=== PATIENT | female | born 1985 | race Caucasian/White ===

== ENCOUNTER → 2017-02-28 | Outpatient (CLI) | payer BC ==
--- NOTE | ~2017-02-28 | NDGEN ---
PATIENT'S NAME: MARCIA GOYAL [facility] [place] AGE: 31 Y [address] ROOM: [place] [id number] LOCATION: [facility] ADMIT DATE: 02/28/2017 [facility] DISCHARGE DATE: FAMILY PHYSICIAN: PAULO UP NP ATTENDING PHYSICIAN: GURJIT GERMAN PROCEDURE: ELECTROENCEPHALOGRAM DATE OF PROCEDURE: 02/28/2017 CLINICAL DIAGNOSIS: TIME: 11:50 a.m. INDICATION: This is a 31-year-old female patient, who had a history of a syncopal event. The EEG was done to rule out any evidence of epileptiform activity or abnormal background rhythm. This 21-lead EEG revealed symmetric background rhythm consistent with an alpha range in between 10-12 hertz rhythm. The amplitudes were well within normal range of 30 to 50 microvolts with a normal sinusoidal pattern in the background at no time during the study was there any alteration in the background rhythm. There was no evidence of any epileptiform features seen and no seizures were recorded. Photic stimulation did produce a normal photic drive response in as a rise in the background amplitude. IMPRESSION: This is a normal EEG. MD RICHY DAWN/hanh /[id number] dtt: 03/15/17 1354 DOE JASON R. dtd: 02/28/17 1749
== END | disposition disaster alternative care site (69) ==
LOC: GNEU 09:15
DX: R55 Syncope and collapse (principal)